=== PATIENT | female | born 1990 | race Two or more races ===

== ENCOUNTER 2021-11-11 11:36 | Inpatient (IN) | payer MEDICAID ==
[~2021-11-11] VITALS: Ht 165.1 cm; Wt 80.7 kg
[2021-11-11] MEDS: LACTATED RINGERS 1,000 ML IV SCH ×2 (12:45→19:21)
[2021-11-11 13:25] LABS: BASOPHILS % 0.2 % (0.0-2.0); EOSINOPHILS % 0.2 % (0.0-5.0); HEMATOCRIT. 38.1 % (36.0-48.0); LYMPHOCYTES % 16.5 % (20.0-50.0); MEAN CORPUSCULAR HEMOGLOBIN 31.9 pg (28.0-32.0); MEAN CORPUSCULAR VOLUME 93.7 fL (81.0-99.0); MEAN PLATELET VOLUME 9.9 fl (7.4-10.4); MONOCYTES % 7.3 % (2.0-8.0); NEUTROPHILS % 75.8 % (40.0-76.0); PLATELET 202 x1000/uL (130-400); RED BLOOD CELL COUNT 4.07 mill/uL (4.2-5.4); RED CELL DISTRIBUTION WIDTH 13.9 % (11.6-14.6)
[2021-11-11 13:25] LABS: CLARITY URINE CLEAR (CLEAR); COLOR URINE YELLOW (YELLOW); KETONES URINE TRACE (NEGATIVE); LEUKOCYTE ESTERASE URINE NEGATIVE (NEGATIVE); NITRITE URINE NEGATIVE (NEGATIVE); OCCULT BLOOD URINE NEGATIVE (NEGATIVE); PH URINE 5.5 (4.5-8.0); PROTEIN URINE NEGATIVE (NEGATIVE); SPECIFIC GRAVITY URINE 1.027 (1.005-1.030)
[2021-11-11] MEDS ORDERED: NALOXONE HCL 0.4 MG/ML 1ML VIAL IM PRN (13:30)
[2021-11-11] MEDS ORDERED: LIDOCAINE HCL 1% 20ML VIAL (Pyxis) INJ INFIL SCH (13:30)
[2021-11-11] MEDS ORDERED: METHYLERGONOVINE MALEATE 0.2 MG/ML IM PRN (13:30)
[2021-11-11] MEDS ORDERED: OXYTOCIN 30 UNITS/500ML NS PMX 500 ML IV SCH (13:30)
[2021-11-11] MEDS ORDERED: BUTORPHANOL TARTRATE 2 MG/ML VIAL IV PRN (13:30)
[2021-11-11 13:37] LABS: INR 0.9; PARTIAL THROMBOPLASTIN TIME 26.8 sec (23.4-31.0); PROTHROMBIN TIME 10.1 sec (9.6-11.0)
[2021-11-11] MEDS ORDERED: LIDOCAINE HCL 1% 30ML VIAL (10MG/ML) INFIL SCH (13:45)
[2021-11-11 13:58] LABS: *AMPHETAMINES SCREEN URINE NEGATIVE (NEGATIVE); *BARBITURATES SCREEN URINE NEGATIVE (NEGATIVE); *BENZODIAZEPINES SCREEN URINE NEGATIVE (NEGATIVE); *COCAINE SCREEN URINE NEGATIVE (NEGATIVE); CANNABINOID URINE SCREEN NEGATIVE (NEGATIVE); METHADONE URINE SCREEN NEGATIVE (NEGATIVE); OPIATES URINE SCREEN NEGATIVE (NEGATIVE); PHENCYCLIDINE URINE SCREEN NEGATIVE (NEGATIVE)
[2021-11-11 14:26] LABS: HEPATITIS B SURFACE ANTIGEN NEGATIVE
[2021-11-11] MEDS: MISOPROSTOL 100MCG TABLET VG SCH ×2 (16:51→21:07)
[2021-11-11] MEDS ORDERED: ROPIVACAINE HCL/PF EPIDURAL 200 ML EPI SCH (20:00)
[2021-11-12] MEDS: MISOPROSTOL 100MCG TABLET VG SCH (01:00)
[2021-11-12] MEDS: LACTATED RINGERS 1,000 ML IV SCH ×3 (03:22→20:55)
[2021-11-12] MEDS ORDERED: LIDOCAINE HCL 2%/EPINEPHRINE 1:100,000 20 ML VIAL INFIL ONE (08:30)
[2021-11-12] MEDS ORDERED: EPHEDRINE SULFATE 50MG/ML VIAL ONE (08:30)
[2021-11-12] MEDS ORDERED: ROPIVACAINE HCL/PF EPIDURAL 200 ML EPI ONE (08:43)
[2021-11-12] MEDS ORDERED: FENTANYL CITRATE/PF 50MCG/ML 2ML VIAL ONE (08:44)
[2021-11-13 02:20] VITALS: BP 116/72
[2021-11-13] MEDS ORDERED: OXYTOCIN 30 UNITS/500ML NS PMX 500 ML IV SCH (02:45)
[2021-11-13] MEDS ORDERED: GLYCERIN/WITCH HAZEL LEAF MEDICATED PAD TOP PRN (02:45)
[2021-11-13] MEDS ORDERED: BENZOCAINE/LANOLIN/ALOE VERA SPRAY TOP PRN (02:45)
[2021-11-13 03:00] VITALS: BP 120/69
[2021-11-13] MEDS: IBUPROFEN 800MG TABLET PO PRN ×4 (04:22→21:45)
[2021-11-13 06:57] LABS: BASOPHILS % 0.1 % (0.0-2.0); EOSINOPHILS % 0.1 % (0.0-5.0); HEMATOCRIT. 32.4 % (36.0-48.0); HEMOGLOBIN. 10.9 g/dL (12.0-16.0); LYMPHOCYTES % 9.3 % (20.0-50.0); MEAN CORPUSCULAR HEMOGLOBIN 32.2 pg (28.0-32.0); MEAN CORPUSCULAR VOLUME 95.3 fL (81.0-99.0); MEAN PLATELET VOLUME 10.3 fl (7.4-10.4); MONOCYTES % 8.8 % (2.0-8.0); NEUTROPHILS % 81.7 % (40.0-76.0); PLATELET 161 x1000/uL (130-400); RED CELL DISTRIBUTION WIDTH 13.9 % (11.6-14.6)
[2021-11-13 08:25] VITALS: BP 108/70
[2021-11-13 17:00] VITALS: BP 113/79
[2021-11-13 20:00] VITALS: BP 111/69
[2021-11-14] MEDS: IBUPROFEN 800MG TABLET PO PRN ×2 (03:55→10:39)
[2021-11-14 04:00] VITALS: BP 120/78
[2021-11-14 07:00] LABS: BASOPHILS % 0.3 % (0.0-2.0); EOSINOPHILS % 1.1 % (0.0-5.0); HEMATOCRIT. 34.7 % (36.0-48.0); HEMOGLOBIN. 11.5 g/dL (12.0-16.0); LYMPHOCYTES % 24.2 % (20.0-50.0); MEAN CORPUSCULAR HEMOGLOBIN 32.1 pg (28.0-32.0); MEAN CORPUSCULAR VOLUME 96.5 fL (81.0-99.0); MEAN PLATELET VOLUME 10.1 fl (7.4-10.4); MONOCYTES % 6.7 % (2.0-8.0); NEUTROPHILS % 67.7 % (40.0-76.0); PLATELET 168 x1000/uL (130-400); RED BLOOD CELL COUNT 3.59 mill/uL (4.2-5.4); RED CELL DISTRIBUTION WIDTH 14.1 % (11.6-14.6)
[2021-11-14 07:45] VITALS: BP 110/64
[2021-11-14] MEDS ORDERED: IBUP-2030 PO (09:05)
[2021-11-14] MEDS ORDERED: FERR210T PO (09:05)
[2021-11-14] MEDS ORDERED: [UNRECOGNIZED DRUG - CODE] MT (09:05)
== END 2021-11-14 14:00 | disposition home or self-care (01) | DRG 560 ==
LOC: 8 EST LDRP 11:36 → OBSVTOIN 11:37 → 8EST 11-13 02:14
PROVIDERS: ADMIT Obstetrics & Gynecology; ATTEND Obstetrics & Gynecology
PROC: 10E0XZZ Delivery of Products of Conception, External Approach (ICD-10-PCS; principal; 2021-11-13)
DX: O48.0 Post-term pregnancy (principal); Z37.0 Single live birth; O41.03X0 Oligohydramnios, third trimester, not applicable or unspecified; Z3A.40 40 weeks gestation of pregnancy; O36.8130 Decreased fetal movements, third trimester, not applicable or unspecified; Z20.822 Contact with and (suspected) exposure to COVID-19
CPT/HCPCS: 36415; 76805; 76818; 80305; 81003; 85025; 86592; 86703; 86762; 86850; 86900; 87340; 87426; 99281; G0378; J0595; J2795; J3010; J3490; J7120; J2590